=== PATIENT | female | born 1960 | race Two or more races ===

== ENCOUNTER → 2023-11-29 | Emergency (ER) | payer OTHER ==
[~2023-11-29] VITALS: Ht 162.6 cm; Wt 68.0 kg
[~2023-11-29] MED LIST: ADULT LOW DOSE81 M1 PO; ALLERGY RELIEF10 M3 PO; ATORVASTATIN CA10 MG PO; BUPROPION XL450 MG; ENTRESTO 97 MG1 EACH PO; GEODON20 MG PO; GLUMETZA500 MG PO; LEVOTHYROXINE150 MC1 PO; OMEPRAZOLE-BIC1 EAC1; ORPHENADRINE CITRATE 30 MG/ML AMPUL IM STA; SULFASALAZINE500 M1 PO; TOPROL XL50 M1 PO
== END | disposition home or self-care (01) ==
LOC: ER 13:09
DX: S00.03XA Contusion of scalp, initial encounter (principal); S06.0XAA Concussion with loss of consciousness status unknown, initial encounter; W19.XXXA Unspecified fall, initial encounter; Y93.89 Activity, other specified; Y92.89 Other specified places as the place of occurrence of the external cause; Y99.8 Other external cause status; Z88.0 Allergy status to penicillin; Z88.5 Allergy status to narcotic agent; M51.36 Other intervertebral disc degeneration, lumbar region